=== PATIENT | female | born 2005 | race Two or more races ===

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

== ENCOUNTER 2025-01-09 22:32 | Emergency (ER) | payer OTHER, SELFPAY ==
--- NOTE | 2025-01-09 | ECG_ITS ---
Test Reason : cp Blood Pressure : */* mmHG Vent. Rate : 68 BPM Atrial Rate : 68 BPM P-R Int : 126 ms QRS Dur : 78 ms QT Int : 392 ms P-R-T Axes : 30 16 32 degrees QTcB Int : 416 ms Sinus rhythm with marked sinus arrhythmia Otherwise normal ECG When compared with ECG of 08-Jul-2024 12:37, Vent. rate has decreased by 51 bpm Nonspecific T wave abnormality, improved in Inferior leads Nonspecific T wave abnormality no longer evident in Lateral leads Referred By: Generic ED Physician Electronically Signed By: VIVIANA CAMPBELL MD
[2025-01-09 22:48] VITALS: BP 169/83; PULSE 62; RESP 16; TEMP 37.1; O2SAT 100; BMI 25.8
[2025-01-09 22:51] LABS: Hematocrit 31.6 % (37.0-47.0); Hemoglobin 10.3 g/dl (12.0-16.0); Imm Gran Abs Auto 0.03 X10*3/uL (0.00-0.03); Imm Gran Pct Auto 0.4 % (0.0-0.4); Lymphocytes Absolute Auto 2.6 X10*3/uL (1.2-4.9); MANUAL DIFF FLAG NO; Mean Corpuscular HGB Conc 32.6 g/dl (31.0-35.0); Mean Corpuscular Hemoglobin 27.8 pg (27.0-33.0); Mean Corpuscular Volume 85.2 fL (80.0-98.0); NRBC Abs Auto 0.000 X10*3/uL (0.0-0.012); NRBC Pct Auto 0.0 /100WBC (0.0-0.2); Platelet Count 376 X10*3/uL (160-400); Red Blood Count 3.71 X10*6/uL (4.20-5.50); White Blood Count 7.9 X10*3/uL (4.8-10.8)
[2025-01-09 23:14] LABS: Alanine Aminotransferase 18 U/L (0-31); Albumin Level 4.1 g/dL (3.5-5.0); Alkaline Phosphatase 70 U/L (39-117); Anion Gap 13 (12-20); Aspartate Amino Transferase 28 U/L (5-31); Blood Urea Nitrogen 16 mg/dL (9-16); Calcium 9.1 mg/dL (8.4-10.2); Carbon Dioxide 22 mmol/L (22-29); Chloride 109 mmol/L (96-108); Creatinine Clr Calc Pharmacy 51.2; Estimated Glomerular Filt Rate 58; Potassium 3.9 mmol/L (3.3-5.1); Sodium 140 mmol/L (135-145); Total Protein 7.1 g/dL (6.5-8.0)
--- NOTE | 2025-01-09 23:14 | ED_ITS ---
HPI - Chest Pain General Chief Complaint: Chest Pain Stated Complaint: chest pain Time Seen by Provider: 01/09/25 23:01 Source: patient, family and old records reviewed Mode of arrival: ambulatory Limitations: no limitations History of Present Illness ED Provider: FLAVIO MENESES narrative: 19 yo female with PMH of [facility] association, chronic back pain, imperforate anus s/p surgical intervention, tachycardia, frequent UTI hx of klebsiella ESBL and E. Coli S to ceftriaxone she self catheterizes she notes she has been doing really well for the past 3 months. 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 It resolved with her mom calming her down. She notes same thing happened tonight and her hands felt cold. She denies OCP, recent travel/procedures, URI. She had hx up until age 12 of low BP and had cardiac arrest post op as an . She has no known congenital heart issues. MD complaint: chest pain Onset (ago): minute(s) (30) Timing of current episode: now resolved Prior episodes: Yes Onset: during rest Pain location: left chest Pain radiation: none Severity: moderate Quality: tightness Relieving factors: nothing Exacerbating factors: nothing Associated symptoms: dyspnea Treatment prior to arrival: none Related Data Home Medications ?Medication ?Instructions ?Recorded ?Confirmed No Known Home Meds 08/21/24 08/21/24 Allergies Allergy/AdvReac Type Severity Reaction Status Date / Time No Known Allergies Allergy Verified 01/09/25 22:51 Review of Systems 2 Review of Systems: Constitutional : No Weight loss, No Fever, No Chills ENT/Mouth : No sore throat, No Rhinorrhea Eyes: No Eye Pain, No Swelling Cardiovascular : pos Chest Pain, no SOB, no Dyspnea on Exertion, No Orthopnea, No Edema, No Palpitations Respiratory : No Cough, No Sputum Gastrointestinal : pos Nausea, No Vomiting, No Diarrhea, No abdominal Pain, No Hematochezia, No Melena Genitourinary : No Dysuria, No Urinary Frequency Musculoskeletal : No joint pain, No Myalgias, No Joint Swelling Skin : No Skin Lesions, No rash Neuro : No Weakness, No Numbness, No Dizziness, No Headache All other systems reviewed and are negative PMFSH Past Medical History Attestation statement: The following information was validated with the patient. 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, not elsewhere classified Surgical History History of kidney surgery Family History Family History Father Skin cancer Maternal Grandmother Cervical cancer Family/Other Mental health disorder Social History Social History Housing: House Alcohol intake: never Patient Tobacco Use Status: Never used Tobacco e-Cigarette/Vaping Use: Never Used Second Hand Smoke Exposure: No Advance Directives: No service: No Current occupational status: unemployed Cognitive needs: No Hearing needs: No Vision needs: No Physical Exam 2 Vital Signs: Vital Signs: Last Vital Signs Temp 99 F 01/10/25 00:00 Pulse 64 01/10/25 00:00 Resp 17 01/10/25 00:00 BP 131/77 01/10/25 00:00 Pulse Ox 100 01/10/25 00:00 O2 Del Method Room Air 01/10/25 00:00 BMI result Body Mass Index 25.8 Appearance: Alert. Oriented X3. No acute distress. Eyes: Pupils equal, round and reactive to light. ENT: Pharynx normal. Neck: Normal inspection. Neck supple. CVS: Normal heart rate and rhythm. Pulses normal. No murmur heard Respiratory: No respiratory distress. Breath sounds normal. Abdomen: Soft and nontender. Multiple surgical scars noted on abdomen Skin: Skin warm and dry. Normal skin color. Extremities: No lower extremity edema. No calf ttp Neuro: Oriented X 3. No motor deficit. No sensory deficit. Course Course Course Narrative: signed out to [facility] SEE pending repeat troponin. Reevaluation(s) Reevaluation #1: Maude Oseguera PA-C have accepted care of the patient and signed out pending delta troponin Labs: Delta troponin less than 2.7 Medical Decision Making Medical Decision Making MDM Narrative: 19 [facility] pain, imperforate anus s/p surgical intervention, tachycardia, frequent UTI hx of klebsiella ESBL and E. Coli S to ceftriaxone she self catheterizes now here with c/o atypical brief chest pain 2nd time in a week occuring at rest. She has no recent travel/procedures, no recent infections, she has no prior known cardiac ds other than caused by surgeries and postop hypotension, she will need ddimer, trop x 2, EKG, her lungs are clear doubt PTX, she has no infectious symptoms to suggest pneumonia, she looks well overall. Differential Diagnosis Differential Diagnoses: The differential diagnosis associated with the presentation includes atypical chest pain. no risk factors for ACS, low prob VTE pulses intact doubt dissection Admission/Observation Consideration of admission/observation: Escalation of care including admission/observation considered if trop neg x 2, ddimer negative would DC home with precautions Lab Data MDM Lab Attestation statement: I reviewed the patient's lab results. trop flat x 1 ddimer negative 01/09/25 22:44 01/09/25 22:44 Labs: Lab Results 01/09/25 01/09/25 01/10/25 Range/Units 22:44 23:29 00:50 WBC 7.9 (4.8-10.8) X10*3/uL RBC 3.71 L (4.20-5.50) X10*6/uL Hgb 10.3 L (12.0-16.0) g/dl Hct 31.6 L (37.0-47.0) % MCV 85.2 (80.0-98.0) fL MCH 27.8 (27.0-33.0) pg MCHC 32.6 (31.0-35.0) g/dl RDW 15.3 (11.0-16.0) % Plt Count 376 (160-400) X10*3/uL MPV 10.2 (9.4-12.3) fL Immature Gran % (Auto) 0.4 (0.0-0.4) % Neut % (Auto) 56.9 (45-73) % Lymph % (Auto) 32.8 (20-40) % Daniels % (Auto) 7.9 (2-11) % Eos % (Auto) 1.5 (0-4) % Baso % (Auto) 0.5 (0-2) % Lymph # (Auto) 2.6 (1.2-4.9) X10*3/uL Daniels # (Auto) 0.6 (0.1-1.2) X10*3/uL Eos # (Auto) 0.1 (0.0-0.4) X10*3/uL Baso # (Auto) 0.0 (0.0-0.2) X10*3/uL Abs Immat Gran (auto) 0.03 (0.00-0.03) X10*3/uL Absolute Neuts (auto) 4.5 (2.0-8.3) x10*3/uL Absolute Nucleated RBC 0.000 (0.0-0.012) X10*3/uL Nucleated RBC % (auto) 0.0 (0.0-0.2) /100WBC D-Dimer High Sensitivty 176 NG/ML Sodium 140 (135-145) mmol/L Potassium 3.9 (3.3-5.1) mmol/L Chloride 109 H (96-108) mmol/L Carbon Dioxide 22 (22-29) mmol/L Anion Gap 13 (12-20) BUN 16 (9-16) mg/dL Creatinine 1.19 (0.5-1.4) mg/dL Estim Creat Clear Calc 51.2 Estimated GFR 58 Random Glucose 93 (60-115) mg/dL Calcium 9.1 D (8.4-10.2) mg/dL Total Bilirubin 0.4 (0.0-1.0) mg/dL AST 28 (5-31) U/L ALT 18 (0-31) U/L Alkaline Phosphatase 70 (39-117) U/L Troponin I High Sens < 2.7 < 2.7 (<3.5-17.0) ng/L Total Protein 7.1 (6.5-8.0) g/dL Albumin 4.1 (3.5-5.0) g/dL Beta HCG, Quant < 2 mIU/mL Independent Interpretation I performed an independent interpretation of an: EKG Interpretation: Rate: 68 Rhythm: NSR Fletcher: normal Normal P waves. Normal BLAIR. Normal QRS complex. ST T wave : inverted t wave V1, no ETHAN qTC: 416 prior studies: no acute ischemia The study has been interpreted contemporaneously by me. Independent Historian Clinical information obtained from an independent historian. History obtained from or confirmed by: Parent External Record Review External record reviewed: Inpatient record and Outpatient record Discharge Plan Discharge Clinical Impression: Atypical chest pain Patient Disposition: Home, Self-Care Instructions: Chest Pain (ED) Additional Instructions: EKG normal troponin blood test normal x 2 blood clot test ddimer normal mild anemia hx of same in past hemoglobin 10.3 return for any worsening symptoms or concerns or any other issues follow up with your doctor you may want to see cardiology as well their number is listed below - you will have to ask your primary care doctor for referral Prescriptions: No Action No Known Home Meds Referrals: [facility] [Provider Group] Print Language: Ethiopian
[2025-01-09 23:18] LABS: Troponin-I High Sensitivity < 2.7 ng/L (<3.5-17.0)
[2025-01-09 23:57] LABS: D Dimer High Sensitivity 176 NG/ML
[2025-01-10] VITALS: BP 131/77; PULSE 64; RESP 17; TEMP 37.2; O2SAT 100
[2025-01-10 01:24] LABS: Troponin-I High Sensitivity < 2.7 ng/L (<3.5-17.0)
--- NOTE | 2025-01-10 01:50 | PC.NURSE ---
Reviewed discharge instructions with pt. pt verbalized understanding, no sign of distress.
[2025-01-10 01:51] VITALS: BP 131/77; PULSE 64; RESP 17; TEMP 37.2; O2SAT 100
== END 2025-01-10 01:51 | disposition home or self-care (01) ==
PROVIDERS: Emergency Provider Emergency Medicine
DX: R07.89 Other chest pain (principal); I49.8 Other specified cardiac arrhythmias; R06.02 Shortness of breath; Z79.899 Other long term (current) drug therapy
CPT/HCPCS: 36415; 80053; 84484; 84702; 85025; 85379; 93005; 99283; 99285

== ENCOUNTER → 2025-01-09 22:39 | Outpatient (BNV) | payer OTHER, SELFPAY | PROVIDERS: Emergency Provider Emergency Medicine; Visit Provider Internal Medicine Cardiovascular Disease | DX: R07.89 Other chest pain (principal) | CPT/HCPCS: 93010 ==

== ENCOUNTER 2025-01-27 13:24 | Outpatient (AMB) | payer OTHER, SELFPAY ==
--- NOTE | 2025-01-27 13:29 | MHC.PC.OV ---
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 Accompanied by: Self / Same As Patient Allergies No Known Allergies Allergy (Verified 01/27/25 13:40) Medication List - Last Reconciled 01/27/25 by Delores Pearce PA-C oxybutynin chloride 2.5 mg PO DAILY Tobacco use date assessed: 01/27/25 Dental Screening Dental Screen Date: 01/27/25 Did you have a dental visit in the last 12 months?: Yes Did you have a dental problem in the last 6 months where you did not have access to dental care?: No Was dental information given to patient?: Patient has dentist HPI Annual Exam HPI Details 19-year-old female with past medical history of VACTERL and elevated blood pressure last seen 08/2024 coming in for annual exam. In review of the notes, patient was [place] [facility] [place] [facility] [place] for chest pain blood work, EKG and chest x-ray were ordered workup was reassuring and patient was discharged home. Presenting with depression, cold extremities, and consideration for breast reduction surgery. The patient reports feeling depressed, primarily due to missing family members, particularly her nephew, which leads to crying when in contact with them. She denies that work or family responsibilities are contributing factors. She has declined medication but is considering counseling, although scheduling is a concern due to her work commitments. The patient reports her legs and feet get extremely cold, sometimes causing discomfort. She has good pulses but experiences coldness, possibly related to circulation issues. The patient experiences discomfort due to large breasts, which impede her ability to exercise effectively. She has been referred for a consultation for potential breast reduction surgery. 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 1. Little interest or pleasure in doing things: more than half the days 2. Feeling down, depressed, or hopeless: more than half the days 3. Trouble falling or staying asleep, or sleeping too much: more than half the days 4. Feeling tired or having little energy: more than half the days 5. Poor appetite or overeating: several days 6. Feeling bad about yourself - or that you are a failure or have let yourself or your family down: not at all 7. Trouble concentrating on things, such as reading the newspaper or watching television: not at all 8. Moving or speaking so slowly that other people could have noticed. Or the opposite - being so fidgety or restless that you have been moving around a lot more than usual: not at all 9. Thoughts that you would be better off or of hurting yourself in some way: not at all Total score: 9 Depression Screening Interpretation: Positive (declines medication and counseling ) Depression Screening Follow-up: Existing condition and Declines treatment Depression Screening Done: Yes 69494 - PHQ-9 Billing: Yes Source: Developed by Drs. Isidoro Marvin, Diamond Paz, Lorenzo Driscoll and colleagues, with an educational cintia from [employer]. Thrive Questionnaire Date Thrive assessed: 01/27/25 I am a: Patient What is your living situation today?: I have a steady place to live Within the past 12 months, did the food you bought not last and you didn't have the money to get more?: Never true Within the past 12 months, did you worry whether your food would run out before you got money to buy more?: Never true Do you have trouble paying for medicines?: No Do you have trouble getting transportation to medical appointments?: No Do you have trouble paying your heating and electricity bill?: No Do you have trouble taking care of your child, family member or friend?: No Do you have trouble with day-to-day activities such as bathing, preparing meals, shopping, managing finances, etc.?: No Are you currently unemployed and looking for a job?: No Are you interested in more education?: No Please select the resources that you would like help with: None Currently or been in a relationship where the following occur: No concerns reported THRIVE Score: 0 AUDIT C Alcohol Use Questionnaire (AUDIT-C) 1. How often do you have a drink containing alcohol?: Never Total Score: 0 KYLEIGH-7 AMB Questionnaire KYLEIGH-7 Date KYLEIGH - 7 assessed: 01/27/25 Feeling nervous, anxious, or on edge: 2 = More than half the days Not being able to stop or control worryin = More than half the days Worrying too much about different things: 2 = More than half the days Trouble relaxin = Not at all Being so restless that it is hard to sit still: 0 = Not at all Becoming easily annoyed or irritable: 2 = More than half the days Feeling afraid as if something awful might happen: 0 = Not at all Total KYLEIGH-7 score (0-4 normal; 5-9 mild; 10-14 moderate; 15-21 severe): 8 Source: Developed by Drs. Isidoro Marvin, Diamond Paz, Lorenzo Driscoll and colleagues, with an educational cintia from [employer]. KYLEIGH-7 Assessment Billing KYLEIGH-7 Assessment Tool: KYELIGH-7 Assessment 47080 Review of Systems Const Denies body aches, Denies fatigue, Denies fever(s), Denies frequent falls, Reports headache(s) (occasional migraines) and Denies weakness Eyes Reports no additional complaints and Denies change in vision ENT Denies dysphagia, Denies dizziness, Denies facial pain, Reports headache(s) (occasional migraines), Denies nasal congestion and Denies odynophagia Card Denies chest pain, Denies syncope, Denies irregular heart rhythm, Denies leg edema, Denies lightheadedness and Denies dyspnea Resp Denies cough and Denies dyspnea GI Denies abdominal pain, Denies melena, Denies hematochezia, Denies constipation, Denies dysphagia, Denies dyspepsia, Denies diarrhea, Denies nausea, Denies odynophagia and Denies vomiting Denies urinary frequency, Denies dysuria, Denies urinary hesitancy and Denies urinary urgency Musc Denies back pain and Denies myalgias Skin/Breast Reports system reviewed and no additional complaints, except as documented Neuro Denies dizziness, Denies syncope, Denies frequent falls, Reports headache(s) (occasional migraines) and Denies weakness Psych Reports no additional complaints Endo Denies fatigue Physical exam (Primary Care) Vital Signs: Last Vital Signs Pulse 67 01/27/25 13:31 BP 116/74 01/27/25 13:31 Pulse Ox 97 01/27/25 13:31 Oxygen Delivery Method Room Air 01/27/25 13:31 BMI result Body Mass Index 25.8 Tobacco/Smoking Status: Tobacco use Status Tobacco use date assessed 01/27/25 01/27/25 13:36 Patient Tobacco Use Status Never used Tobacco 01/27/25 13:36 e-Cigarette/Vaping Use Never Used 01/27/25 13:36 PHQ-9: PHQ-9 Score PHQ-9: Total score 9 01/27/25 14:09 Depression Screening Interpretation: Positive (declines medication and counseling ) Depression Screening Follow-up: Existing condition and Declines treatment Thrive Assessment: Date of Thrive Assessment Date Thrive assessed 01/27/25 01/27/25 13:36 Currently or been in a relationship where the following occur: No concerns reported Const General: cooperative, healthy appearing, comfortable and no acute distress Orientation/consciousness: patient oriented x3 HENMT Head: Yes normocephalic Ears: hearing grossly normal bilaterally, external ears normal, TM's normal bilaterally and EAC's normal General nose exam: Normal external nose present Face and sinus: Yes normal facial exam and Yes sinuses nontender Mouth: Normal oral and palatal mucosa present and tongue normal Throat: Yes posterior oropharynx normal Eyes General: appearance normal, both eyes and all related structures Conjunctivae: conjunctivae normal Pupils: Equal, round and reactive pupils present EOM: EOMs intact bilaterally and No Nystagmus present Neck Neck: Yes normal visual inspection, Yes full ROM and Yes no lymphadenopathy Chest Chest palpation & inspection: normal inspection of the chest Resp Effort & Inspection: normal respiratory effort Auscultation: clear to auscultation bilaterally, no crackles, no rales, no rhonchi, no wheezes and breath sounds present Cardio Rate: regular rate Rhythm: regular rhythm Peripheral pulses: radial pulses present and dorsalis pedis present GI Inspection: Yes normal to inspection and No Abdominal wall edema Palpation (GI): Soft to palpation, not firm and nontender Auscultation: normal bowel sounds Rectal Exam - Female: deferred General: Yes no CVA tenderness Back/Spine/Pelvis Back: no CVA tenderness Skin General skin exam: no rashes or lesions noted Neuro General: patient oriented x3 Cranial nerves: Yes Equal, round and reactive pupils present, Yes Midline tongue present, Yes Ability to bilaterally elevate shoulders present and No Nystagmus present Gait exam (Neuro): Normal gait present Extrem General: Yes normal to inspection, Yes full ROM, No no pedal edema and No edema Psych Speech and movement: Normal speech and movement present Affect: normal affect Insight: Good insight present (Psych) Judgement: Good judgement present (Psych) Coding Level of Care Code Est Pt Prev Care 18-39y(87602) Diagnoses Annual physical exam Z00.00 Elevated blood pressure reading R03.0 VACCITY OF HOPE, [place] 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 Healthy diet and regular exercise is encouraged. Plan to follow up yearly or sooner as needed (2) Elevated blood pressure reading: Code(s): R03.0 - Elevated blood-pressure reading, without diagnosis of hypertension Category: Medical Plan: Avoid salt intake and encourage healthy diet and regular exercise. (3) VACTERL association: Comment: vertebral defects, anal atresia, cardiac defects, tracheo-esophageal fistula, renal anomalies, and limb abnormalities.Apr 21, 2011 Code(s): Q87.2 - Congenital malformation syndromes predominantly involving limbs; Q24.9 - Congenital malformation of heart, unspecified Category: Medical Plan: She will continue to follow with her urologist in his currently on oxybutynin. She continues to self-catheterize and denies any urinary issues at this time. (4) Recurrent urinary tract infection: Code(s): N39.0 - Urinary tract infection, site not specified Category: Medical Plan: No urinary complaints at this time and continue on oxybutynin (5) Insomnia: Code(s): G47.00 - Insomnia, unspecified Category: Medical Plan: No longer using Melatonin and has been doing well with her sleep. Does not feel the need for medication at this time. (6) Bilateral pendulous breasts: Code(s): N64.89 - Other specified disorders of breast Category: Medical Plan: Patient would benefit from plastic surgery referral for possible breast reduction. Medical necessity note in the chart (7) Cold feet: Code(s): R20.9 - Unspecified disturbances of skin sensation Category: Medical Plan: On exam bilateral feet are cold however they do have good pulses and capillary refill in all digits. She denies any numbness or tingling in bilateral feet or pain with a cold sensation. Advised patient to wear warm socks keep feet warm. Follow up as needed for this concern Plan During the visit, we discussed the patient's depressive symptoms and the potential benefits of counseling, particularly telehealth options to fit her schedule. We also addressed her concerns about cold extremities, advising her to keep them warm. For her dermatitis, a steroid cream was prescribed to manage inflammation. We talked about the possibility of breast reduction surgery, and I will write a letter to support her insurance claim. Additionally, we reviewed her anemia and ordered further blood work to monitor her condition. I encouraged her to maintain a balanced diet and regular exercise to manage stress and improve overall health. This note was constructed using voice recognition software. While every effort has been made to ensure accuracy and health technical writer, still areas may have been included sometimes these areas may affect the content or meeting of the given symptoms. Total time spent caring for the patient today was 30 minutes. This includes time spent before the visit reviewing the chart, time spent during the visit, and time spent after the visit and documentation. Patient was informed and verbally consented to the use of an ambient scribe for clinic note documentation during this visit. Orders: Orders TSH reflex Free T4 01/27/25 Z13.29 - Encounter for screening for other suspected endocrine disorder Vitamin B12 and Folate 01/27/25 Z13.21 - Encounter for screening for nutritional disorder Vitamin D 25-OH Total 01/27/25 Z13.21 - Encounter for screening for nutritional disorder Complete Blood Count Auto Diff 01/27/25 D64.9 - Anemia, unspecified Referrals Plastic Surgery Referral G89.29 - Other chronic pain, M54.6 - Pain in thoracic spine, N64.89 - Other specified disorders of breast Medications: New ammonium lactate 12% (AmLactin) 1 appl topical DAILY 225 grams 1RF
[2025-01-27 13:31] VITALS: BP 116/74; PULSE 67; O2SAT 97; BMI 25.8
--- OUTSIDE RECORDS SUMMARY | 2025-01-27 15:41 | XMS_ITS | Clinical Summary ---
Author Organization [facility] Address [address] [place] [address] Care Team Providers Care Flute Polisher Name Role Phone Margaux Saldivar PA-C Primary Care Provider Allergies No known active allergies Medications sennosides (LAX-X ORAL) Take by mouth. Active Active Problems No known active problems Encounters Date Type Department Care Team Description 11/19/2024 Telephone [facility] [address] [place] [address] Chris Narvaez RN from Last 3 Months [...] 04/17/2023 1:1 5 PM EST Growth Chart: [facility] (Girls, 2- 20 Years) Plan of Treatment Not on file Insurance [facility] [place] [facility] [place] Care Teams Flute Polisher Relationship Specialty Start Date End Date Margaux Saldivar PA-C [address] [place] [address] PCP - General 09/15/22
--- OUTSIDE RECORDS SUMMARY | 2025-01-27 15:41 | XMS_ITS | Clinical Summary ---
Author Organization [facility] Address [address] [place] [id number] Care Team Providers Care Software Sales Manager Name Role Phone Margaux Saldivar Primary Care Provider [phone] Source Comments Please note that some or [...] so, obtain the minor's consent prior to disclosure.[facility] Allergies No known active allergies Medications [...] COVID-19 Vaccine (2023-2 5 season) 2024 INFLUENZA (Season Ended) 2025 NIRSEVIMAB VACCINES UNDER 8 MONTHS Aged Out No longer eligible based on patient's age to complete this topic Insurance PLAN Care Teams Software Sales Manager Relationship Specialty Start Date End Date Margaux Saldivar PA [address] [place] [address] [place] [id number] PCP - General 09/19/22
--- OUTSIDE RECORDS SUMMARY | 2025-01-27 15:41 | XMS_ITS | Encounter Summary ---
Author Organization [facility] Address [address] [place] [address] Care Team Providers Care Station Mechanic Apprentice Name Role Phone Physician, Pcp Unknown Primary Care Provider Elzbieta vailable Encounter Details Date Type Department Care Team (Late st Contact Info) Description 07/16/2024 Lab Requisition [facility] [address] [place] [address] Lei Medina MD [address] [address] Urinary tract infection, site not specified Social [...] Urine No growth 07/17/2024 1:22 PM EST [facility] Urine Urine specimen obtained by clean catch procedure / Unknown 07/16/2024 07/16/2024 7:42 PM EST us Lei Medina MD LAB MICROBIOLOGY - GE NERAL ORDERABLES Final Result [facility] [address] [place] [address], documented in this encounter Visit Diagnoses Diagnosis Urinary tract infection, site not specified documented in this encounter Care Teams Station Mechanic Apprentice Relationship Specialty Start Date End Date Physician, Pcp Unknown PCP - General 07/18/24 documented as of this encounter
--- OUTSIDE RECORDS SUMMARY | 2025-01-27 15:41 | XMS_ITS | Clinical Summary ---
Author Organization [address] Address [address] [place] [address] Phone Care Team Providers Care Speeder Frame Tender Name Role Phone Physician, Pcp Unknown Primary Care Provider Elzbieta vailable Social History Tobacco Use Types Packs/Day Years [...] (1 - 3-dose series) 2020 Meningococcal B Vaccine (1 o f 2 - Standard) 2021 Depression Screening 05/22/2024 DTaP,Tdap,and Td Vaccines (1 - Tdap) 2024 Hepatitis B Vaccines (1 of 3 - 19+ 3-dose series) 2024 Annual Well Child Visit (3-2 1 years old) 07/17/2024 HIV Screening 07/17/2024 Hepatitis C Screening 07/17/2024 Social Influencers of Health Screening 07/17/2024 COVID-19 Vaccine (1 - 2023-2 5 season) 2025 Influenza Vaccine (#1) 2025 HIB Vaccines Aged Out No longer eligi [...] 5 Years) and At-Risk Patients (6 to 49 Years) Aged Out No longer eligible b ased on patient's age to complete this topic RSV Immunization Patients Un ann 20 months Aged Out No longer eligible b ased on patient's age to complete this topic Insurance [facility] [employer] Care Teams Speeder Frame Tender Relationship Specialty Start Date End Date Physician, Pcp Unknown PCP - General 07/18/24
== END 2025-01-27 14:09 | disposition home or self-care (01) ==
LOC: HO.HMCH 13:25
DX: Z00.00 Encounter for general adult medical examination without abnormal findings (principal); R03.0 Elevated blood-pressure reading, without diagnosis of hypertension; Q87.2 Congenital malformation syndromes predominantly involving limbs; Q24.9 Congenital malformation of heart, unspecified; N39.0 Urinary tract infection, site not specified; G47.00 Insomnia, unspecified; N64.89 Other specified disorders of breast; R20.9 Unspecified disturbances of skin sensation

== ENCOUNTER 2025-01-27 13:24 | Outpatient (REF) | payer OTHER, SELFPAY ==
[2025-01-27 14:24] LABS: MANUAL DIFF FLAG NO
[2025-01-27 15:25] LABS: Hematocrit 31.8 % (37.0-47.0); Hemoglobin 10.4 g/dl (12.0-16.0); Imm Gran Abs Auto 0.03 X10*3/uL (0.00-0.03); Imm Gran Pct Auto 0.3 % (0.0-0.4); Lymphocytes Absolute Auto 1.5 X10*3/uL (1.2-4.9); Mean Corpuscular HGB Conc 32.7 g/dl (31.0-35.0); Mean Corpuscular Hemoglobin 27.9 pg (27.0-33.0); Mean Corpuscular Volume 85.3 fL (80.0-98.0); NRBC Abs Auto 0.000 X10*3/uL (0.0-0.012); NRBC Pct Auto 0.0 /100WBC (0.0-0.2); Platelet Count 334 X10*3/uL (160-400); Red Blood Count 3.73 X10*6/uL (4.20-5.50); White Blood Count 10.9 X10*3/uL (4.8-10.8)
[2025-01-27 16:37] LABS: Folate 7.0 ng/mL (> or = 4.0); Vitamin B12 365 pg/mL (200-900)
== END 2025-01-27 13:25 | disposition home or self-care (01) ==
LOC: HO.LAB 13:24
DX: Z13.21 Encounter for screening for nutritional disorder (principal); Z13.29 Encounter for screening for other suspected endocrine disorder; Z00.00 Encounter for general adult medical examination without abnormal findings; D64.9 Anemia, unspecified; R03.0 Elevated blood-pressure reading, without diagnosis of hypertension; Q87.2 Congenital malformation syndromes predominantly involving limbs; Q24.9 Congenital malformation of heart, unspecified; N39.0 Urinary tract infection, site not specified; G47.00 Insomnia, unspecified; N64.89 Other specified disorders of breast; R20.9 Unspecified disturbances of skin sensation; Z79.899 Other long term (current) drug therapy
CPT/HCPCS: 36415; 82306; 82607; 82746; 84443; 85025; 96127; 99395

== ENCOUNTER 2025-01-28 11:06 | Emergency (ER) | payer OTHER, SELFPAY ==
--- NOTE | ~2025-01-28 | US_ITS ---
CLINICAL HISTORY: ovarian cyst, torsion US pelvis transabdominal with Doppler Comparison: CT/SR - ABDOMEN ABD_PEL_WITHOUT (ADULT) - 01/28/25 19:22 EDT Findings: Transabdominal scanning performed with Doppler. Anteverted uterus is 9.4 cm length. Normal myometrium. There appear to be 2 separate endometrial stripes, 1 of which measures up to 8.0 mm in thickness. The right ovary is not visualized on this examination, possibly obscured by overlying bowel gas. Left ovary measures 5.8 x 3.9 x 5.7 cm. Flow present at the left ovary on color and spectral Doppler imaging. A 4.4 cm cystic structure with posterior acoustic enhancement and scattered low-level internal echoes is present at the left ovary. No internal flow identified within this structure on color Doppler imaging. No free fluid. IMPRESSION: 1. Negative for left ovarian torsion. The right ovary is not visualized on this examination, possibly obscured by overlying bowel gas. 2. Cystic 4.4 cm structure with low-level internal echoes present at the left adnexa, suggesting a hemorrhagic cyst. 3. Two separate endometrial stripes visualized, suggesting a nonspecific mullerian duct abnormality. No endometrial thickening appreciated. This document has been electronically signed by: Harvinder Tavares MD on 01/28/2025 22:11:43
--- NOTE | ~2025-01-28 | CT_ITS ---
CLINICAL HISTORY: left flank pain CT abdomen and pelvis without contrast Comparison: CT/SR - CT ABDOMEN PELVIS WO IV CON - 07/08/24 14:57 EST Findings: No consolidation or effusion. Gallbladder is within normal limits. Severe bilateral hydronephrosis is unchanged. Solid organs are otherwise within normal limits. Moderate bilateral ureteral dilatation. 3 mm calcification within the proximal left ureter. No bowel obstruction, pneumoperitoneum, or pneumatosis. 11 mm distal left ureteral calculus is present as before. 54 mm cystic left adnexal focus. Normal appendix. No acute fracture. L1 oscar vertebrae is present. IMPRESSION: 1. No change in severe bilateral hydronephrosis. Left ureteral calcifications, as before. 2. Left adnexal cystic focus. Initial further assessment with ultrasound is recommended. This document has been electronically signed by: Kwadwo Kim MD on 01/28/2025 20:30:35
[2025-01-28 11:34] VITALS: BP 121/73; PULSE 69; RESP 18; TEMP 36.5; O2SAT 98; BMI 25.6
--- NOTE | 2025-01-28 11:36 | ED_ITS ---
HPI - General Adult General Chief complaint: Abdominal Pain Stated complaint: Abd pain Time Seen by Provider: 01/28/25 17:24 Related Data Home Medications ?Medication ?Instructions ?Recorded ?Confirmed oxybutynin chloride 2.5 mg tablet 2.5 mg PO DAILY 01/1301/27/25 Previous Rx's ?Medication ?Instructions ?Recorded ammonium lactate 12 % lotion 1 appl topical DAILY #225 grams 01/27/25 (AmLactin) cholecalciferol (vitamin D3) 25 25 mcg PO DAILY #90 ca ps 01/27/25 mcg (1,000 unit) capsule cefuroxime axetil 500 mg tablet 500 mg PO BID #20 tabs 01/28/25 ondansetron 4 mg disintegrating 4 mg PO TID PRN nausea and 01/28/25 tablet vomiting 5 days #10 tabs Allergies Allergy/AdvReac Type Severity Reaction Status Date / Time No Known Allergies Allergy Verified 01/28/25 11:36 PMFSH Past Medical History 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, not elsewhere classified Surgical History History of kidney surgery Family History Family History Father Skin cancer Maternal Grandmother Cervical cancer Family/Other Mental health disorder Social History Social History Housing: House Alcohol intake: never Patient Tobacco Use Status: Never used Tobacco Smoked in Last 30 Days: No e-Cigarette/Vaping Use: Never Used Second Hand Smoke Exposure: No Use of substances other than those prescribed or required for medical reasons: No Advance Directives: No Advance Directives Information Provided: No service: No Current occupational status: employed Current occupation: [employer] Cognitive needs: No Hearing needs: No Vision needs: No Physical Exam ED Vital Signs: Vital Signs - 24 hr 01/28/25 11:34 01/28/25 18:46 01/28/25 22:46 Temperature 97.7 F 98.3 F 98.2 F Pulse Rate 69 89 71 Respiratory Rate 18 17 16 Blood Pressure 121/73 125/88 111/71 Pulse Oximetry 98 97 100 Oxygen Delivery Method Room Air Room Air Room Air BMI result Body Mass Index 25.6 Course Course Course Narrative: This is an RME: Additional HPI, ROS, PE not included below will be deferred to primary provider. RME assessment and note performed by: Elena Woods PA-C This is a 19-year-old female, hx of VACTERL, renal reflux requiring multiple surgeries as an requiring self catheterization, who presents emergency department with concerns of bilateral flank pain, and abdominal pain, and chills. No known fevers, chills, nausea, or vomiting. Plan: Labs, UA, further ER eval needed Medications Administered Discontinued Medications Generic Name Dose Route Start Last Admin Trade Name Freq PRN Reason Stop Dose Admin Ceftriaxone Sodium 1 gm 01/28/25 15:53 01/28/25 19:29 Ceftriaxone Sodium 1 Gm Vial IVPUSH 01/28/25 15:54 1 gm ONCE ONE Administration Cefuroxime Axetil 500 mg 01/28/25 15:54 01/28/25 19:45 Cefuroxime Axetil 500 Mg Tablet PO 01/28/25 15:55 Not Given ONCE ONE Sodium Chloride 1,000 mls @ 999 mls/hr 01/28/25 17:45 01/28/25 21:02 Ns IV 01/28/25 18:45 Infused .Q1H1M TOM Infusion Ketorolac Tromethamine 15 mg 01/28/25 17:31 01/28/25 19:29 Ketorolac Tromethamine 15 Mg/Ml Vial IVPUSH 01/28/25 17:32 15 mg ONCE ONE Administration Procedures Procedure Narrative Procedure Narrative: Ultrasound-guided IV 20 gauge 1-3/4 inch IV placed in left upper extremity. Adequate blood return, flushes well secured with Tegaderm performed by Temitope Oseguera PA-C Medical Decision Making Lab Data 01/28/25 12:11 01/28/25 12:11 Labs: Lab Results 01/28/25 01/28/25 Range/Units 12:11 19:20 WBC 9.7 (4.8-10.8) X10*3/uL RBC 3.81 L (4.20-5.50) X10*6/uL Hgb 10.7 L (12.0-16.0) g/dl Hct 32.5 L (37.0-47.0) % MCV 85.3 (80.0-98.0) fL MCH 28.1 (27.0-33.0) pg MCHC 32.9 (31.0-35.0) g/dl RDW 14.8 (11.0-16.0) % Plt Count 311 (160-400) X10*3/uL MPV 10.4 (9.4-12.3) fL Immature Gran % (Auto) 0.2 (0.0-0.4) % Neut % (Auto) 72.9 (45-73) % Lymph % (Auto) 18.2 L (20-40) % [place] % (Auto) 7.9 (2-11) % Eos % (Auto) 0.4 (0-4) % Baso % (Auto) 0.4 (0-2) % Lymph # (Auto) 1.8 (1.2-4.9) X10*3/uL [place] # (Auto) 0.8 (0.1-1.2) X10*3/uL Eos # (Auto) 0.0 (0.0-0.4) X10*3/uL Baso # (Auto) 0.0 (0.0-0.2) X10*3/uL Abs Immat Gran (auto) 0.02 (0.00-0.03) X10*3/uL Absolute Neuts (auto) 7.1 (2.0-8.3) x10*3/uL Absolute Nucleated RBC 0.000 (0.0-0.012) X10*3/uL Nucleated RBC % (auto) 0.0 (0.0-0.2) /100WBC Sodium 141 (135-145) mmol/L Potassium 3.6 (3.3-5.1) mmol/L Chloride 108 (96-108) mmol/L Carbon Dioxide 23 (22-29) mmol/L Anion Gap 14 (12-20) BUN 13 (9-16) mg/dL Creatinine 1.08 (0.5-1.4) mg/dL Estim Creat Clear Calc 56.2 Estimated GFR > 60 Random Glucose 74 (60-115) mg/dL Lactic Acid 0.8 (0.5-2.0) mmol/L Calcium 9.3 (8.4-10.2) mg/dL Magnesium 1.9 (1.6-2.6) mg/dL Total Bilirubin 0.9 (0.0-1.0) mg/dL Direct Bilirubin 0.3 (0.0-0.5) mg/dL AST 23 (5-31) U/L ALT 13 (0-31) U/L Alkaline Phosphatase 73 (39-117) U/L Total Protein 7.4 (6.5-8.0) g/dL Albumin 4.2 (3.5-5.0) g/dL Beta HCG, Quant < 2 mIU/mL Urine Color Yellow Urine Appearance Cloudy Urine pH 6.0 (5.0-9.0) Ur Specific [place] 1.010 (1.005-1.025) Urine Protein 100 (2+) H (Neg-Trace) mg/dL Urine Glucose (UA) Negative (Negative) mg/dL Urine Ketones 15 (Negative) mg/dL Urine Blood Trace H (Negative) Urine Nitrite Negative (Negative) Ur Leukocyte Esterase Large (3+) H (Negative) Urine RBC 0-2 (0-2) /HPF Urine WBC >50 H (0-5) /HPF Ur Squamous Epith Cells 0-2 (0-2) /HPF Urine Bacteria 4+ (None Seen) Hyaline Casts 0-2 (0-2) /LPF Discharge Plan Discharge Patient Disposition: Home, Self-Care Instructions: Urinary Tract Infection in Women (DC) Prescriptions: New cefuroxime axetil 500 mg tablet 500 mg PO BID Qty: 20 0RF ondansetron 4 mg tablet,disintegrating 4 mg PO TID PRN (Reason: nausea and vomiting) 5 Days Qty: 10 0RF No Action cholecalciferol (vitamin D3) 25 mcg (1,000 unit) capsule 25 mcg PO DAILY Qty: 90 3RF oxybutynin chloride 2.5 mg tablet 2.5 mg PO DAILY ammonium lactate [AmLactin] 12 % lotion 1 appl topical DAILY Qty: 225 1RF Referrals: Delores Pearce PA-C [Primary Care Provider, Internal Medicine] - 3 days Print Language: Nauruan
[2025-01-28 12:24] LABS: MANUAL DIFF FLAG NO
[2025-01-28 12:25] LABS: Hematocrit 32.5 % (37.0-47.0); Hemoglobin 10.7 g/dl (12.0-16.0); Imm Gran Abs Auto 0.02 X10*3/uL (0.00-0.03); Imm Gran Pct Auto 0.2 % (0.0-0.4); Lymphocytes Absolute Auto 1.8 X10*3/uL (1.2-4.9); Mean Corpuscular HGB Conc 32.9 g/dl (31.0-35.0); Mean Corpuscular Hemoglobin 28.1 pg (27.0-33.0); Mean Corpuscular Volume 85.3 fL (80.0-98.0); NRBC Abs Auto 0.000 X10*3/uL (0.0-0.012); NRBC Pct Auto 0.0 /100WBC (0.0-0.2); Platelet Count 311 X10*3/uL (160-400); Red Blood Count 3.81 X10*6/uL (4.20-5.50); White Blood Count 9.7 X10*3/uL (4.8-10.8)
[2025-01-28 12:26] LABS: Appearance Urine Cloudy; Glucose Urine UA Negative (Negative); PH 6.0 (5.0-9.0); Specific Gravity - Urine 1.010 (1.005-1.025); UMIC TRIGGER UACC YES
[2025-01-28 12:32] LABS: UACC Culture Trigger YES
[2025-01-28 12:50] LABS: Alanine Aminotransferase 13 U/L (0-31); Albumin Level 4.2 g/dL (3.5-5.0); Alkaline Phosphatase 73 U/L (39-117); Anion Gap 14 (12-20); Aspartate Amino Transferase 23 U/L (5-31); Blood Urea Nitrogen 13 mg/dL (9-16); Calcium 9.3 mg/dL (8.4-10.2); Carbon Dioxide 23 mmol/L (22-29); Chloride 108 mmol/L (96-108); Creatinine Clr Calc Pharmacy 56.2; Estimated Glomerular Filt Rate > 60; Magnesium 1.9 mg/dL (1.6-2.6); Potassium 3.6 mmol/L (3.3-5.1); Sodium 141 mmol/L (135-145); Total Protein 7.4 g/dL (6.5-8.0)
--- NOTE | 2025-01-28 17:31 | ED.ABDPAIN ---
HPI - Abdominal Pain General Chief Complaint: Abdominal Pain Stated Complaint: Abd pain Time Seen by Provider: 01/28/25 17:24 History of Present Illness HPI narrative: Patient is a 19-year-old female presents today with having left flank pain. No nausea no vomiting or focal weakness. Patient is from home. Has a history of renal disease. SR currently on oxybutynin. Has a history of self catheterization. Had some pain in the flank area there is no nausea no vomiting. There is no focal weakness. Patient is from home. Numerous history of UTI secondary to self catheterization. No fever no chills. Related Data Home Medications ?Medication ?Instructions ?Recorded ?Confirmed oxybutynin chloride 2.5 mg tablet 2.5 mg PO DAILY 01/27/25 01/27/25 Previous Rx's ?Medication ?Instructions ?Recorded ammonium lactate 12 % lotion 1 appl topical DAILY #225 grams 01/27/25 (AmLactin) cholecalciferol (vitamin D3) 25 25 mcg PO DAILY #90 caps 01/27/25 mcg (1,000 unit) capsule cefuroxime axetil 500 mg tablet 500 mg PO BID #20 tabs 01/28/25 ondansetron 4 mg disintegrating 4 mg PO TID PRN nausea and 01/28/25 tablet vomiting 5 days #10 tabs Allergies Allergy/AdvReac Type Severity Reaction Status Date / Time No Known Allergies Allergy Verified 01/28/25 11:36 Review of Systems Review of Systems Positive flank pain PMFSH Past Medical History Attestation statement: The following information was validated with the patient. 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, not elsewhere classified Surgical History History of kidney surgery Family History Family History Father Skin cancer Maternal Grandmother Cervical cancer Family/Other Mental health disorder Social History Social History Housing: House Alcohol intake: never Patient Tobacco Use Status: Never used Tobacco Smoked in Last 30 Days: No e-Cigarette/Vaping Use: Never Used Second Hand Smoke Exposure: No Use of substances other than those prescribed or required for medical reasons: No Advance Directives: No Advance Directives Information Provided: No service: No Current occupational status: employed Current occupation: [employer] Cognitive needs: No Hearing needs: No Vision needs: No Physical Exam ED Exam Exam: Appearance: Alert. Oriented X3. No acute distress. Eyes: Pupils equal, round and reactive to light. ENT: Pharynx normal. Neck: Normal inspection. Neck supple. No lymph nodes noted. No crepitus CVS: Normal heart rate and rhythm. Pulses normal. Normal S1 and S2 Respiratory: No respiratory distress. Breath sounds normal. No Wheezing. No rales Abdomen: Soft and nontender. No rigidity. No distention. good BS x4 Skin: Skin warm and dry. Normal skin color. Normal skin turgor. Extremities: No lower extremity edema. Neurovascular intact to all extremities. No Lacerations. No Rash Neuro: Oriented X 3. No motor deficit. No sensory deficit. Moving all extermities. No slurred speech Vital Signs: Vital Signs - 24 hr 01/28/25 11:34 01/28/25 18:46 01/28/25 22:46 Temperature 97.7 F 98.3 F 98.2 F Pulse Rate 69 89 71 Respiratory Rate 18 17 16 Blood Pressure 121/73 125/88 111/71 Pulse Oximetry 98 97 100 Oxygen Delivery Method Room Air Room Air Room Air BMI result Body Mass Index 25.6 Medical Decision Making Medical Decision Making [facility] Narrative: CT scan showed no overt obstruction no abscess no perforation. No evidence for kidney stone. It did show an ovarian cyst on the left side. There is approximately 4 cm in size. Ultrasound was done. There is no evidence for torsion. There is a hemorrhagic cyst. Likely contributed patient's pain. Patient is well-appearing otherwise. No distress. Will discharge home. Urine showed evidence for infection will give antibiotics. Lactate is 0.8 there is no evidence for sepsis. Differential Diagnosis Pyelonephritis, ovarian torsion, kidney stone Admission/Observation Consideration of admission/observation: Escalation of care including admission/observation considered Lab Data [facility] Lab Attestation statement: I reviewed the patient's lab results. 01/28/25 12:11 01/28/25 12:11 Labs: Lab Results 01/28/25 01/28/25 Range/Units 12:11 19:20 WBC 9.7 (4.8-10.8) X10*3/uL RBC 3.81 L (4.20-5.50) X10*6/uL Hgb 10.7 L (12.0-16.0) g/dl Hct 32.5 L (37.0-47.0) % MCV 85.3 (80.0-98.0) fL MCH 28.1 (27.0-33.0) pg MCHC 32.9 (31.0-35.0) g/dl RDW 14.8 (11.0-16.0) % Plt Count 311 (160-400) X10*3/uL MPV 10.4 (9.4-12.3) fL Immature Gran % (Auto) 0.2 (0.0-0.4) % Neut % (Auto) 72.9 (45-73) % Lymph % (Auto) 18.2 L (20-40) % [place] % (Auto) 7.9 (2-11) % Eos % (Auto) 0.4 (0-4) % Baso % (Auto) 0.4 (0-2) % Lymph # (Auto) 1.8 (1.2-4.9) X10*3/uL [place] # (Auto) 0.8 (0.1-1.2) X10*3/uL Eos # (Auto) 0.0 (0.0-0.4) X10*3/uL Baso # (Auto) 0.0 (0.0-0.2) X10*3/uL Abs Immat Gran (auto) 0.02 (0.00-0.03) X10*3/uL Absolute Neuts (auto) 7.1 (2.0-8.3) x10*3/uL Absolute Nucleated RBC 0.000 (0.0-0.012) X10*3/uL Nucleated RBC % (auto) 0.0 (0.0-0.2) /100WBC Sodium 141 (135-145) mmol/L Potassium 3.6 (3.3-5.1) mmol/L Chloride 108 (96-108) mmol/L Carbon Dioxide 23 (22-29) mmol/L Anion Gap 14 (12-20) BUN 13 (9-16) mg/dL Creatinine 1.08 (0.5-1.4) mg/dL Estim Creat Clear Calc 56.2 Estimated GFR > 60 Random Glucose 74 (60-115) mg/dL Lactic Acid 0.8 (0.5-2.0) mmol/L Calcium 9.3 (8.4-10.2) mg/dL Magnesium 1.9 (1.6-2.6) mg/dL Total Bilirubin 0.9 (0.0-1.0) mg/dL Direct Bilirubin 0.3 (0.0-0.5) mg/dL AST 23 (5-31) U/L ALT 13 (0-31) U/L Alkaline Phosphatase 73 (39-117) U/L Total Protein 7.4 (6.5-8.0) g/dL Albumin 4.2 (3.5-5.0) g/dL Beta HCG, Quant < 2 mIU/mL Urine Color Yellow Urine Appearance Cloudy Urine pH 6.0 (5.0-9.0) Ur Specific [place] 1.010 (1.005-1.025) Urine Protein 100 (2+) H (Neg-Trace) mg/dL Urine Glucose (UA) Negative (Negative) mg/dL Urine Ketones 15 (Negative) mg/dL Urine Blood Trace H (Negative) Urine Nitrite Negative (Negative) Ur Leukocyte Esterase Large (3+) H (Negative) Urine RBC 0-2 (0-2) /HPF Urine WBC >50 H (0-5) /HPF Ur Squamous Epith Cells 0-2 (0-2) /HPF Urine Bacteria 4+ (None Seen) Hyaline Casts 0-2 (0-2) /LPF Medications Administered Discontinued Medications Generic Name Dose Route Start Last Admin Trade Name Freq PRN Reason Stop Dose Admin Ceftriaxone Sodium 1 gm 01/28/25 15:53 01/28/25 19:29 Ceftriaxone Sodium 1 Gm Vial IVPUSH 01/28/25 15:54 1 gm ONCE ONE Administration Cefuroxime Axetil 500 mg 01/28/25 15:54 01/28/25 19:45 Cefuroxime Axetil 500 Mg Tablet PO 01/28/25 15:55 Not Given ONCE ONE Sodium Chloride 1,000 mls @ 999 mls/hr 01/28/25 17:45 01/28/25 21:02 Ns IV 01/28/25 18:45 Infused .Q1H1M TOM Infusion Ketorolac Tromethamine 15 mg 01/28/25 17:31 01/28/25 19:29 Ketorolac Tromethamine 15 Mg/Ml Vial IVPUSH 01/28/25 17:32 15 mg ONCE ONE Administration Discharge Plan Discharge Clinical Impression: UTI (urinary tract infection) Patient Disposition: Home, Self-Care Instructions: Urinary Tract Infection in Women (DC) Prescriptions: New cefuroxime axetil 500 mg tablet 500 mg PO BID Qty: 20 0RF ondansetron 4 mg tablet,disintegrating 4 mg PO TID PRN (Reason: nausea and vomiting) 5 Days Qty: 10 0RF No Action cholecalciferol (vitamin D3) 25 mcg (1,000 unit) capsule 25 mcg PO DAILY Qty: 90 3RF oxybutynin chloride 2.5 mg tablet 2.5 mg PO DAILY ammonium lactate [AmLactin] 12 % lotion 1 appl topical DAILY Qty: 225 1RF Referrals: Delores Pearce PA-C [Primary Care Provider, Internal Medicine] - 3 days Interventions: ED Discharge Assessment Last Done: 01/28/25 23:15 Discharge Date/Time: 01/28/25 23:35 Print Language: Icelandic
--- OUTSIDE RECORDS SUMMARY | 2025-01-28 18:19 | XMS_ITS | Encounter Summary ---
Author Organization [facility] Address [address] [place] [address] Care Team Providers Care Wastewater Plant Operator Name Role Phone Physician, Pcp Unknown Primary Care Provider Elzbieta vailable Encounter Details Date Type Department Care Team (Late st Contact Info) Description 07/16/2024 Lab Requisition [facility] [address] [place] [address] Lei Medina MD [address] [address] Urinary tract infection, site not specified Social [...] Urine No growth 07/17/2024 1:22 PM EST [facility] Urine Urine specimen obtained by clean catch procedure / Unknown 07/16/2024 07/16/2024 7:42 PM EST us Lei Medina MD LAB MICROBIOLOGY - GE NERAL ORDERABLES Final Result [facility] [address] [place] [address], documented in this encounter Visit Diagnoses Diagnosis Urinary tract infection, site not specified documented in this encounter Care Teams Wastewater Plant Operator Relationship Specialty Start Date End Date Physician, Pcp Unknown PCP - General 07/18/24 documented as of this encounter
--- OUTSIDE RECORDS SUMMARY | 2025-01-28 18:19 | XMS_ITS | Clinical Summary ---
Author Organization [facility] Address [address] [place] [address] Care Team Providers Care Paradichlorobenzene Tender Name Role Phone Margaux Saldivar PA-C Primary Care Provider [phone] Allergies No known active allergies Medications sennosides (LAX-X ORAL) Take by mouth. Active Active Problems No known active problems Encounters Date Type Department Care Team Description 11/19/2024 Telephone [facility] [address] [place] [address] Chris Narvaez RN from Last 3 Months [...] 04/17/2023 1:1 5 PM EST Growth Chart: [facility] (Girls, 2- 20 Years) Plan of Treatment Not on file Insurance [facility] [place] [facility] [place] Care Teams Paradichlorobenzene Tender Relationship Specialty Start Date End Date Margaux Saldivar PA-C [address] [place] [address] PCP - General 09/15/22
--- OUTSIDE RECORDS SUMMARY | 2025-01-28 18:19 | XMS_ITS | Clinical Summary ---
Author Organization [address] Address [address] [place] [address] Phone Care Team Providers Care Courtesy Van Driver Name Role Phone Physician, Pcp Unknown Primary [...] patient's age to complete this topic Insurance [facility] [employer] Care Teams Courtesy Van Driver Relationship Specialty Start Date End Date Physician, Pcp Unknown PCP - General 07/18/24
--- OUTSIDE RECORDS SUMMARY | 2025-01-28 18:19 | XMS_ITS | Clinical Summary ---
Author Organization [facility] Address [address] [place] [id number] Care Team Providers Care Director Of Optimization Name Role Phone Margaux Saldivar Primary Care Provider [phone] Source Comments Please note that some or [...] so, obtain the minor's consent prior to disclosure.[facility] Allergies No known active allergies Medications [...] complete this topic Insurance PLAN Care Teams Director Of Optimization Relationship Specialty Start Date End Date Margaux Saldivar PA [address] [place] [address] [place] [address] PCP - General 09/19/22
[2025-01-28 18:46] VITALS: BP 125/88; PULSE 89; RESP 17; TEMP 36.8; O2SAT 97
--- NOTE | 2025-01-28 19:16 | PC.NURSE ---
Patient brought back to room after needing higher level of care than PIT chair. Patient needing BC / Lactic - patient extremely difficult stick, needing US line. MAYI Foote currently at bedside for IV/labs, meds to be given post BC.
--- NOTE | 2025-01-28 19:46 | PC.NURSE ---
Confirmed w/ provider Dr. Felix patient received IV rocephin, no need for PO Ceftin at this time. Provider agreed.
[2025-01-28 22:46] VITALS: BP 111/71; PULSE 71; RESP 16; TEMP 36.8; O2SAT 100
[2025-01-28 23:15] VITALS: BP 111/71; PULSE 71; RESP 16; TEMP 36.8; O2SAT 100
== END 2025-01-28 23:35 | disposition home or self-care (01) ==
PROVIDERS: Physician Assistant Medical; Emergency Provider Emergency Medicine Emergency Medical Services
DX: N39.0 Urinary tract infection, site not specified (principal); R10.2 Pelvic and perineal pain; Z79.899 Other long term (current) drug therapy; Z87.440 Personal history of urinary (tract) infections
CPT/HCPCS: 36415; 74176; 76856; 80048; 80076; 81001; 83605; 83735; 84702; 85025; 87040; 87086; 93975; 96361; 96374; 96375; 99284; J0696; J1885

== ENCOUNTER → 2025-01-28 17:30 | Outpatient (BNV) | payer OTHER, SELFPAY | PROVIDERS: Emergency Provider Emergency Medicine Emergency Medical Services; Visit Provider Radiology Diagnostic Radiology | DX: N13.2 Hydronephrosis with renal and ureteral calculous obstruction (principal) | CPT/HCPCS: 74176 ==